=== PATIENT | male | born 1960 | race Caucasian/White ===

== ENCOUNTER → 2016-07-31 | Outpatient (CLI) | payer BC ==
[~2016-07-31] VITALS: Ht 185.4 cm; Wt 89.8 kg
[~2016-07-31] MED LIST: LIDOCAINE 2% INJ 100 MG/5 ML SDV (FOR ANES.) As Ordered ONE; NS 1,000 ML IV SCH; PROPOFOL 200 MG/20 ML VIAL As Ordered ONE; PROZ10CA7 PO
--- NOTE | 2016-07-31 08:38 | ROOR ---
Patient Name: Mushtaq Hernandez Procedure Date: 07/31/2016 8:11 AM Date of : 1960 Age: 56 Room: [facility] Gender: Male Note Status: Finalized Procedure: Colonoscopy Indications: Screening for colorectal malignant neoplasm Providers: Surjit Mckinney MD Referring MD: KULDEEP MUSE MD Requesting Provider: Medicines: Monitored Anesthesia Care Complications: No immediate complications. Procedure: Pre-Anesthesia Assessment: - Prior to the procedure, a History and Physical was performed, and patient medications and allergies were reviewed. The patient is competent. The risks and benefits of the procedure and the sedation options and risks were discussed with the patient. All questions were answered and informed consent was obtained. Patient identification and proposed procedure were verified by the physician, the nurse and the anesthesiologist in the endoscopy suite. Mental Status Examination: alert and oriented. Airway Examination: normal oropharyngeal airway and neck mobility. Respiratory Examination: clear to auscultation. CV Examination: normal. Prophylactic Antibiotics: The patient does not require prophylactic antibiotics. Prior Anticoagulants: The patient has taken no previous anticoagulant or antiplatelet agents. ASA Grade Assessment: II - A patient with mild systemic disease. After reviewing the risks and benefits, the patient was deemed in satisfactory condition to undergo the procedure. The anesthesia plan was to use monitored anesthesia care (MAC). Immediately prior to administration of medications, the patient was re-assessed for adequacy to receive sedatives. The heart rate, respiratory rate, oxygen saturations, blood pressure, adequacy of pulmonary ventilation, and response to care were monitored throughout the procedure. The physical status of the patient was re-assessed after the procedure. The Colonoscope was introduced through the anus and advanced to the cecum, identified by appendiceal orifice and ileocecal valve. The colonoscopy was performed without difficulty. The patient tolerated the procedure well. The quality of the bowel preparation was good. Findings: The perianal and digital rectal examinations were normal. A few small-mouthed diverticula were found in the sigmoid colon. There was no evidence of diverticular bleeding. The entire examined colon appeared normal. No additional abnormalities were found on retroflexion. Impression: - Diverticulosis in the sigmoid colon. There was no evidence of diverticular bleeding. - The entire examined colon is normal. - No specimens collected. Recommendation: - Discharge patient to home (ambulatory). - Repeat colonoscopy in 10 years for screening purposes. Surjit Mckinney MD Surjit Mckinney MD 07/31/2016 8:38:24 AM This report has been signed electronically. Number of Addenda: 0 Note Initiated On: 07/31/2016 8:11 AM Estimated Blood Loss: Estimated blood loss: none. Estimated blood loss: none.
[2016-07-31 08:55] VITALS: BP 124/58
== END ==
LOC: M OPP 07:38
PROVIDERS: ATTEND Surgery
DX: Z12.11 Encounter for screening for malignant neoplasm of colon (principal); K57.30 Diverticulosis of large intestine without perforation or abscess without bleeding; Z87.891 Personal history of nicotine dependence; F41.9 Anxiety disorder, unspecified; Z79.899 Other long term (current) drug therapy; Z91.89 Other specified personal risk factors, not elsewhere classified

== ENCOUNTER → 2016-09-11 | Outpatient (CLI) | payer BC ==
[~2016-09-11] MED LIST changes: -LIDOCAINE 2% INJ 100 MG/5 ML SDV (FOR ANES.) As Ordered ONE; -NS 1,000 ML IV SCH; -PROPOFOL 200 MG/20 ML VIAL As Ordered ONE
[2016-09-11 13:01] LABS: ALBUMIN 4.1 GM/DL (3.2-5.2); ALBUMIN/GLOBULIN RATIO 1.32 (1.00-1.93); ALKALINE PHOSPHATASE 65 U/L (45-117); ALT/SGPT 46 U/L (12-78); ANION GAP 7 MEQ/L (8-16); AST/SGOT 28 U/L (15-37); BILIRUBIN,TOTAL 0.8 MG/DL (0.2-1.0); BLOOD UREA NITROGEN 19 MG/DL (7-18); CALCIUM LEVEL 8.7 MG/DL (8.5-10.1); CARBON DIOXIDE LEVEL 28 MEQ/L (21-32); CHLORIDE LEVEL 106 MEQ/L (98-107); CHOLESTEROL LEVEL 198 MG/DL (<200); CREATININE FOR GFR 1.14 MG/DL (0.70-1.30); GLOMERULAR FILTRATION RATE > 60.0 (>56); GLUCOSE, FASTING 86 MG/DL (70-105); POTASSIUM SERUM 4.7 MEQ/L (3.5-5.1); SODIUM LEVEL 141 MEQ/L (136-145); TOTAL PROTEIN 7.2 GM/DL (6.4-8.2); TRIGLYCERIDES LEVEL 73 MG/DL (<150)
== END ==
LOC: M WUC 09:48
PROVIDERS: ATTEND Family Medicine
DX: Z13.1 Encounter for screening for diabetes mellitus (principal)

== ENCOUNTER → 2018-12-26 | Outpatient (CLI) | payer OTHER ==
[2018-12-26 18:34] LABS: HEMATOCRIT 46.1 % (42.0-52.0); MEAN CORPUSCULAR HEMOGLOBIN 30.9 pg (27.0-33.0); MEAN CORPUSCULAR HGB CONC 32.5 g/dl (32.0-36.5); MEAN CORPUSCULAR VOLUME 95.1 fl (80.0-96.0); PLATELET COUNT, AUTOMATED 313 10^3/uL (150-450); RED BLOOD COUNT 4.85 10^6/uL (4.30-6.10); WHITE BLOOD COUNT 5.4 10^3/uL (4.0-10.0)
[2018-12-26 18:51] LABS: ALBUMIN 3.7 GM/DL (3.2-5.2); ALT/SGPT 48 U/L (12-78); BILIRUBIN,TOTAL 0.7 MG/DL (0.2-1.0); BLOOD UREA NITROGEN 18 MG/DL (7-18); CALCIUM LEVEL 8.6 MG/DL (8.5-10.1); CARBON DIOXIDE LEVEL 27 MEQ/L (21-32); CHLORIDE LEVEL 109 MEQ/L (98-107); CHOLESTEROL LEVEL 184 MG/DL (<200); CHOLESTEROL RISK RATIO 3.228 (<5); CREATININE FOR GFR 1.05 MG/DL (0.70-1.30); GLOMERULAR FILTRATION RATE > 60.0 (>56); GLUCOSE, FASTING 84 MG/DL (70-100); HDL CHOLESTEROL 57 MG/DL (>40); LDL CHOLESTEROL 106 MG/DL (<100); NON-HDL-C 127 MG/DL; POTASSIUM SERUM 4.9 MEQ/L (3.5-5.1); SODIUM LEVEL 142 MEQ/L (136-145); TOTAL PROTEIN 6.9 GM/DL (6.4-8.2); TRIGLYCERIDES LEVEL 106 MG/DL (<150)
== END ==
LOC: M WUC 09:55
PROVIDERS: ATTEND Family Medicine
DX: F41.9 Anxiety disorder, unspecified (principal); F32.9 Major depressive disorder, single episode, unspecified; Z13.220 Encounter for screening for lipoid disorders

== ENCOUNTER 2019-03-17 07:49 | Day surgery (SDC) | payer OTHER ==
[~2019-03-17] VITALS: Ht 188 cm; Wt 95.3 kg
[~2019-03-17 07:49] MED LIST changes: +FLUO40CA PO; +LIDOCAINE 1% MDV 20ML VIAL SQ PRN; +LR 1,000 ML IV ONE
[2019-03-17] MEDS ORDERED: BUPIVACAINE HCL 0.25% 30 ML VIAL As Ordered ONE (13:51)
[2019-03-17] MEDS ORDERED: LIDOCAINE 1% SDV INJ 30 ML VIAL As Ordered ONE (13:51)
[2019-03-17] MEDS ORDERED: BUPIVACAINE LIPOSOME/PF 1.3% 20ML VIAL (13.3MG/ML)(EXPAREL)(C9290 PER1MG) As Ordered ONE (13:51)
[2019-03-17] MEDS ORDERED: PROPOFOL 200 MG/20 ML VIAL As Ordered ONE (14:18)
[2019-03-17] MEDS ORDERED: MIDAZOLAM INJ 2 MG/2 ML VIAL (J2250) As Ordered ONE (14:18)
[2019-03-17] MEDS ORDERED: fentaNYL 250 MCG/5 ML INJECTION (J3010) As Ordered ONE (14:18)
[2019-03-17] MEDS ORDERED: LIDOCAINE 2% INJ 100 MG/5 ML SDV (FOR ANES.) As Ordered ONE (14:18)
[2019-03-17] MEDS ORDERED: ONDANSETRON 4MG/2ML VIAL (J2405) As Ordered ONE (14:18)
[2019-03-17] MEDS ORDERED: ROCURONIUM BROMIDE 50 MG/5 ML VIAL As Ordered ONE ×2 (14:18→14:28)
[2019-03-17] MEDS ORDERED: LACRILUBE (AKWA TEARS) OPHTH OINT 3.5 GM As Ordered ONE (14:18)
[2019-03-17] MEDS ORDERED: SUGAMMADEX SODIUM 500 MG/5 ML VIAL (BRIDION) As Ordered ONE (14:18)
[2019-03-17] MEDS ORDERED: LIDOCAINE 2% JELLY 6 ML SYRINGE As Ordered ONE (14:18)
[2019-03-17] MEDS ORDERED: dexameTHASONE 4 MG/ML 1ML VIAL (J1100) As Ordered ONE (14:18)
[2019-03-17] MEDS ORDERED: METOCLOPRAMIDE INJ 10MG/2ML VIAL (J2765) As Ordered ONE (14:18)
[2019-03-17] MEDS ORDERED: KETOROLAC 60 MG/2 ML VIAL (J1885) As Ordered ONE (14:21)
[2019-03-17] MEDS ORDERED: ePHEDrine SULFATE 25 MG/5 ML(5MG/ML) SYRINGE As Ordered ONE (14:31)
[2019-03-17] MEDS ORDERED: BUPIVACAINE HCL 0.25% 10 ML VIAL As Ordered ONE (14:32)
[2019-03-17] MEDS ORDERED: ACETAMINOPHEN 1000MG 100ML IV BTL (OFIRMEV) (J0131 PER 10MG) As Ordered ONE (14:40)
[2019-03-17] MEDS ORDERED: NORCO, ANEXSIA 5/325MG TABLET (HYDROcodone/ACETAMINOPHEN) PO PRN (16:45)
[2019-03-17] MEDS ORDERED: MORPHINE 10 MG/ML 1ML VIAL (J2270) IV PRN (16:45)
[2019-03-17] MEDS ORDERED: KETOROLAC 30 MG/ML VIAL (J1885) IV PRN (16:45)
[2019-03-17] MEDS ORDERED: LR 1,000 ML IV SCH (16:45)
[2019-03-17] MEDS ORDERED: ONDANSETRON 4MG/2ML VIAL (J2405) IV PRN (16:45)
[2019-03-17] MEDS ORDERED: fentaNYL 100 MCG/2 ML INJECTION (J3010) IV PRN (16:45)
[2019-03-17] MEDS ORDERED: PERCOCET 5MG/325MG TAB PO PRN (16:45)
[2019-03-17 18:00] VITALS: BP 127/67
[2019-03-17] MEDS ORDERED: PERCOCET 5MG/325MG TAB As Ordered ONE (19:10)
--- NOTE | 2019-03-23 15:58 | ROOPDOC ---
[facility] Report Of Operation Report of Operation DATE OF PROCEDURE: 03/17/19 PREPROCEDURE DIAGNOSES: Umbilical hernia. POSTPROCEDURE DIAGNOSES: Umbilical hernia containing omentum and preperitoneal fat tissue. PROCEDURE: Robotic-assisted laparoscopic transabdominal preperitoneal repair (rTAPP) of umbilical hernia with preperitoneal placement of mesh. SURGEON: Surjit Mckinney MD SKATING RINK MANAGER: Belén Hawkins NP Ross assisted me with placement of ports, management of the robotic arms, instruments and mesh on the field while I was scrubbed and assisted surgeon's console and with closing of the incisions ANESTHESIA: General anesthesia with transabdominal preperitoneal block using a mixture of Exparel and 1/4% Marcaine. ESTIMATED BLOOD LOSS: Approximately 10 mL. COMPLICATIONS: None. REMARKS: 50-year-old gentleman with roughly 2 cm bulging at the top portion of his umbilicus containing preperitoneal fat tissue that has been enlarging and becoming more symptomatic. PROCEDURE NOTE: A 12 x 12 cm piece of BardSoft medium weight polypropylene bare mesh was placed in the preperitoneal plane. DESCRIPTION OF PROCEDURE: Patient was given a dose of 2 g Ancef IV preoperatively for wound prophylaxis. He was brought to the operating room and placed supine on the table. Compression boots and teds were placed on both lower extremities for DVT prophylaxis. General endotracheal anesthesia was administered. He was positioned on the table, left arm was tucked, the right arm placed on an arm board. All bony prominences were padded. The abdomen was prepped from xiphoid to pubis and table to table with chlorhexidine. The patient was draped in the usual sterile fashion. Timeout were performed using both preinduction and pre-incision safety checklist to verify correct patient, procedure site and additional clinical information prior to beginning the procedure. Entry into the abdomen done through a small incision on the left upper quadrant area close to the subcostal line at about the anterior axillary line. The fascia was elevated and Veress needle inserted in a controlled fashion. Proper position was confirmed with a saline drop test. The abdomen was insufflated to a pressure of 15 mmHg. under direct vision of laparoscope, an 8 mm robotic trocar was placed inside of the abdomen. The insertion point was inspected for bleeding or injury and none was found. Patient was positioned slightly left side up to displace bowels from the abdominal wall and 2 more 8 mm robotic ports were placed along the same line as the first port roughly one fist length from each other. Under laparoscopic guidance I performed a transabdominal preperitoneal plane block using 20 mL's of a mixture of Exparel and 1/4% Marcaine on each side targeting the area of the hernia and port site placement. Under direct vision 2 additional 8 mm trochars were placed along the left side of the abdominal wall. The da Jonatan Xi robot tower was then positioned in place to center on these trochars. The trochars were docked to the robot and the camera and instruments installed. I primarily used the forced bipolar forceps on my left hand connected to bipolar cautery and the robotic scissors connected to a monopolar cautery with an 8 mm laparoscope pointed 30 deg upwards. I scrubbed out and to control of the camera and instruments at the surgeon's console. The adhered omentum was reduced back into the abdomen and lysed with monopolar cautery. I opened up a preperitoneal pocket on the left side of the abdomen of the about 5 cm away from the umbilicus. This was expanded going towards the umbilical hernia. The preperitoneal fat tissue that was within the hernia defect was reduced and the peritoneal flap was extended circumferentially to create an adequate space for mesh placement. I was some bleeding at the lower left most portion of the pocket was controlled with bipolar cautery. The hernia defect was measured as 2 x 2 cm. I closed the hernia defect along with a small amount of diastases above and below the umbilical cleft with a running suture of 0 V LOC while reducing the pressure to 12 mmHg. I then trimmed a 12 x 12 cm piece of a large macroporous mesh (Bard Soft) and marked the center of the mesh placement. This was inserted into the abdomen and placed within the pocket abutting the posterior abdominal wall. The pocket was enlarged to accommodate the mesh. I then used a 2-0 Vicryl suture to affix the mesh to the posterior abdominal wall in the 4 cardinal corners as well as at the center of the mesh to make sure it lays flat at the back of the abdominal wall. Once this is done the peritoneal flap was closed with a running suture of 2-0 V LOC with the abdominal pressure decreased to 8 mmHg.. I inspected the peritoneal for any defect during the dissection and none was found. I scrubbed back in. The instruments and trochars were undocked to the da Jonatan robot tower. The abdomen was deflated. All ports were removed. The 8 mm trocar sites were closed with 4-0 Monocryl in a subcuticular fashion. Dermabond was used for dressing on top of the incisions. Patient was then promptly awakened, extubated and brought to the recovery room stable. SURJIT MCKINNEY MD Mar 23, 2019 15:58
== END 2019-03-17 18:10 | disposition home or self-care (01) ==
LOC: M SDC 07:49
PROVIDERS: ATTEND Surgery
DX: K42.0 Umbilical hernia with obstruction, without gangrene (principal); F41.9 Anxiety disorder, unspecified; Z79.899 Other long term (current) drug therapy; Z91.013 Allergy to seafood; Z91.041 Radiographic dye allergy status; Z91.048 Other nonmedicinal substance allergy status
CPT/HCPCS: 49652; C1781; C9290; J0131; J0690; J1100; J1885; J2250; J2405; J2765; J3010

== ENCOUNTER → 2019-11-16 | Outpatient (CLI) | payer OTHER ==
[~2019-11-16] MED LIST changes: -LIDOCAINE 1% MDV 20ML VIAL SQ PRN; -LR 1,000 ML IV ONE
[2019-11-16 11:03] LABS: BASO # 0.1 10^3/uL (0.0-0.2); BASO % 1.5 % (0.0-1.0); EOS # 0.2 10^3/uL (0.0-0.5); EOS % 3.6 % (0.0-3.0); HEMATOCRIT 43.8 % (42.0-52.0); HEMOGLOBIN 14.5 g/dl (13.5-17.5); LYMPH # 1.6 10^3/uL (1.5-5.0); LYMPH % 26.6 % (24.0-44.0); MEAN CORPUSCULAR HEMOGLOBIN 30.1 pg (27.0-33.0); MEAN CORPUSCULAR HGB CONC 33.1 g/dl (32.0-36.5); MEAN CORPUSCULAR VOLUME 90.9 fl (80.0-96.0); MONO # 0.5 10^3/uL (0.0-0.8); NEUTROPHILS # 3.5 10^3/uL (1.5-8.5); PLATELET COUNT, AUTOMATED 322 10^3/uL (150-450); RED BLOOD COUNT 4.82 10^6/uL (4.30-6.10); WHITE BLOOD COUNT 5.9 10^3/uL (4.0-10.0)
[2019-11-16 11:29] LABS: HEMOGLOBIN A1c 6.1 %
[2019-11-16 11:46] LABS: ALBUMIN 3.9 GM/DL (3.2-5.2); ALT/SGPT 65 U/L (12-78); BILIRUBIN,TOTAL 0.6 MG/DL (0.2-1.0); BLOOD UREA NITROGEN 22 MG/DL (7-18); CALCIUM LEVEL 9.2 MG/DL (8.5-10.1); CARBON DIOXIDE LEVEL 28 MEQ/L (21-32); CHLORIDE LEVEL 107 MEQ/L (98-107); CREATININE FOR GFR 1.05 MG/DL (0.70-1.30); FERRITIN 203 NG/ML (26-388); FREE T4 0.86 NG/DL (0.76-1.46); GLOMERULAR FILTRATION RATE > 60.0 (>56); GLUCOSE, FASTING 94 MG/DL (70-100); IRON (FE) 105 UG/DL (65-175); POTASSIUM SERUM 5.2 MEQ/L (3.5-5.1); SODIUM LEVEL 140 MEQ/L (136-145); TESTOSTERONE 245 NG/DL (241-827); TOTAL 25(OH) VITAMIN D 24.4 NG/ML (30.0-100.0); TOTAL PROTEIN 7.2 GM/DL (6.4-8.2); VITAMIN B12 LEVEL 548 PG/ML
[2019-11-20 00:06] LABS: Lyme Disease IgG/IgM Antibodie <0.91 ISR (0.00-0.90); Lyme Disease IgM Ab Quantitati <0.80 index (0.00-0.79)
== END ==
LOC: M WUC 08:36
PROVIDERS: ATTEND Family Medicine
DX: R53.83 Other fatigue (principal)

== ENCOUNTER → 2020-06-03 | Outpatient (CLI) | payer SELFPAY | LOC: M LABSMTC 10:47 | PROVIDERS: ATTEND Pediatrics | DX: Z20.828 Contact with and (suspected) exposure to other viral communicable diseases (principal) ==

== ENCOUNTER → 2021-05-10 | Outpatient (CLI) | payer OTHER ==
[2021-05-10 10:56] LABS: HEMOGLOBIN A1c 5.4 %
[2021-05-10 11:01] LABS: ALBUMIN 3.8 GM/DL (3.2-5.2); ALT/SGPT 60 U/L (12-78); BILIRUBIN,TOTAL 0.7 MG/DL (0.2-1.0); BLOOD UREA NITROGEN 17 MG/DL (7-18); CALCIUM LEVEL 9.2 MG/DL (8.8-10.2); CARBON DIOXIDE LEVEL 28 MEQ/L (21-32); CHLORIDE LEVEL 107 MEQ/L (98-107); GLOMERULAR FILTRATION RATE > 60.0 (>49); GLUCOSE, FASTING 89 MG/DL (70-100); POTASSIUM SERUM 4.7 MEQ/L (3.5-5.1); SODIUM LEVEL 139 MEQ/L (136-145)
[2021-05-10 13:10] LABS: TOTAL 25(OH) VITAMIN D 31.5 NG/ML (30.0-100.0)
== END ==
LOC: M WUC 08:29
PROVIDERS: ATTEND Family Medicine
DX: R73.02 Impaired glucose tolerance (oral) (principal); E55.9 Vitamin D deficiency, unspecified

== ENCOUNTER → 2023-07-18 | Outpatient (CLI) | payer OTHER ==
[2023-07-18 13:12] LABS: ALKALINE PHOSPHATASE 68 U/L (46-116); ALT/SGPT 108 U/L (7.0-40); AST/SGOT 51 U/L (<34); BILIRUBIN,TOTAL 0.8 MG/DL (0.3-1.2); BLOOD UREA NITROGEN 20 MG/DL (9-23); CALCIUM LEVEL 9.1 MG/DL (8.3-10.6); CARBON DIOXIDE LEVEL 28 MMOL/L (20-31); CHLORIDE LEVEL 110 MMOL/L (98-107); CHOLESTEROL LEVEL 186 MG/DL (<200); CREATININE FOR GFR 1.12 MG/DL (0.70-1.30); GLOMERULAR FILTRATION RATE > 60.0 (>49); GLUCOSE, FASTING 97 MG/DL (74-106); LDL CHOLESTEROL 109.2 MG/DL (<100); POTASSIUM SERUM 4.6 MMOL/L (3.5-5.1); SODIUM LEVEL 143 MMOL/L (136-145); TRIGLYCERIDES LEVEL 119 MG/DL (<150)
[2023-07-18 13:21] LABS: HEMOGLOBIN A1c 5.5 % (4.0-6.0)
== END ==
LOC: M WUC 10:53
PROVIDERS: ATTEND Family Medicine
DX: E55.9 Vitamin D deficiency, unspecified (principal); R73.02 Impaired glucose tolerance (oral); Z13.220 Encounter for screening for lipoid disorders

== ENCOUNTER → 2025-03-01 | Outpatient (CLI) | payer OTHER ==
[~2025-03-01] MED LIST changes: +PROZ10CA11 PO; -PROZ10CA7 PO
[2025-03-01 12:48] LABS: ALT/SGPT 79.0 U/L (7.0-40); AST/SGOT 50.0 U/L (<34); CALCIUM LEVEL 9.2 MG/DL (8.3-10.6); CARBON DIOXIDE LEVEL 28.0 MMOL/L (20-31); CHLORIDE LEVEL 106.0 MMOL/L (98-107); CHOLESTEROL LEVEL 180.0 MG/DL (<200); CHOLESTEROL RISK RATIO 3.44 (<5); CREATININE FOR GFR 1.15 MG/DL (0.70-1.30); GLOMERULAR FILTRATION RATE 71.1 (>49); LDL CHOLESTEROL 103.8 MG/DL (<100); NON-HDL-C 127.8 MG/DL; POTASSIUM SERUM 4.6 MMOL/L (3.5-5.1); SODIUM LEVEL 143.0 MMOL/L (136-145); TRIGLYCERIDES LEVEL 120.0 MG/DL (<150)
[2025-03-01 12:50] LABS: TOTAL 25(OH) VITAMIN D 28.4 NG/ML (20.0-100.0)
[2025-03-01 13:19] LABS: ESTIMATED AVERAGE GLUCOSE 120.0 MG/DL (60-110)
== END ==
LOC: M WUC 09:01
PROVIDERS: ATTEND Family Medicine
DX: Z13.220 Encounter for screening for lipoid disorders (principal); R73.02 Impaired glucose tolerance (oral); E55.9 Vitamin D deficiency, unspecified